=== PATIENT | female | born 1960 | race Hispanic/Latino ===

== ENCOUNTER → 2023-02-06 | Outpatient (CLI) | payer MEDICARE ==
[2023-02-06 15:03] LABS: CREATININE 0.6 mg/dL (0.5-1.5)
== END | disposition home or self-care (01) ==
LOC: LAB 14:07
PROVIDERS: ATTEND Otolaryngology Plastic Surgery within the Head & Neck
DX: H90.3 Sensorineural hearing loss, bilateral (principal)
CPT/HCPCS: 36415; 82565; 84520

== ENCOUNTER → 2023-02-12 | Outpatient (CLI) | payer MEDICARE ==
[~2023-02-12] MED LIST: GADOTERATE MEGLUMINE 10 MMOL/20 ML VIAL IV ONE
== END | disposition home or self-care (01) ==
LOC: RAH 12:52
PROVIDERS: ATTEND Otolaryngology Plastic Surgery within the Head & Neck
DX: H90.3 Sensorineural hearing loss, bilateral (principal)
CPT/HCPCS: 70553; A9575

== ENCOUNTER → 2025-02-27 | Outpatient (CLI) | payer MEDICARE ==
--- NOTE | 2025-02-27 12:39 | HMCIMG ---
MRI RIGHT HIP WITHOUT CONTRAST INDICATION: Pain in right hip COMPARISON: None. TECHNIQUE: Long and short axis fat and water weighted sequences were obtained through the right hip. FINDINGS: 2.0 cm aggregate of subcortical degenerative cysts along the anterosuperolateral right acetabulum. No evidence for acetabular labral tear or paralabral cyst. Right femoral head is well formed without osteochondral erosion or avascular necrosis. No significant chondromalacia or degenerative joint disease identified. No evidence to suggest femoral acetabular impingement. Gluteus and iliopsoas tendon attachments appear normal. No evidence for trochanteric bursitis. Small amount of fluid within the right iliopsoas bursa. Right hamstring complex appears normal. Right sciatic nerve bundles appears normal. No incidental pelvic mass identified. No evidence for hernia. No significant joint effusion noted. No abnormal soft tissue mass or ganglion detected. No evidence for myoedema. Visible portions of the right sacroiliac joint appears normal. IMPRESSION: Mild right iliopsoas bursitis. 2.0 cm aggregate of subcortical degenerative cysts along the anterosuperolateral right acetabulum.
== END | disposition home or self-care (01) ==
LOC: RAH 11:24
PROVIDERS: ATTEND Student in an Organized Health Care Education/Training Program
DX: M70.71 Other bursitis of hip, right hip (principal); M25.851 Other specified joint disorders, right hip; M25.551 Pain in right hip
CPT/HCPCS: 73721